=== PATIENT | male | born 1995 | race Caucasian/White ===

== ENCOUNTER 2017-11-06 10:32 | Emergency (ER) | payer BC ==
[~2017-11-06] VITALS: Ht 185.4 cm; Wt 112.0 kg
[2017-11-06 10:44] VITALS: BP 176/89; PULSE 92; RESP 18; TEMP 98.7; O2SAT 96
[2017-11-06] MEDS ORDERED: ZOLO50TA PO (10:53)
[2017-11-06] MEDS ORDERED: VENTAER INH (10:53)
[2017-11-06] MEDS ORDERED: LIDOCAINE HCL 1% PF 30 ML VIAL ONE (11:05)
[2017-11-06] MEDS ORDERED: IBUP1TAB7 PO (11:05)
[2017-11-06] MEDS ORDERED: CLIN150C14 PO (11:05)
--- NOTE | 2017-11-06 11:05 | PD ---
HPI Chief Complaint: Laceration/Skin Injury Time Seen by Provider: 10:56 Travel History International Travel<30 days: No Contact w/Intl Traveler<30days: No Traveled to known affect area: No History of Present Illness HPI 21-year-old male presents to the emergency department with complaint of laceration to the back of his left hand just below his thumb from a knife. He opened a brand-new knife and it slipped out of his hand and cut his hand. Unknown tetanus status. Denies paresthesias, loss of sensation, decreased range of motion, decreased strength to the affected hand. Denies fever, vomiting. Has not taken any medications to alleviate his symptoms. Has applied pressure to control bleeding. Symptoms are mild in severity. Denies pain. No known aggravating or relieving factors. Allergies to penicillins and sulfa. Has primary care provider at home; patient is here on vacation. History of asthma. Has no other medical complaints. No other modifying factors or associated signs and symptoms. PFSH Past Medical History Asthma: Yes Anxiety: Yes ?: Not Past Surgical History Other Surgery: Yes (ADENOIDS) Social History Alcohol Use: Yes Tobacco Use: No Substance Use: No Allergies-Medications (Allergen,Severity, Reaction): Coded Allergies: Penicillins (Verified Allergy, Unknown, 11/06/17) Sulfa (Sulfonamide Antibiotics) (Verified Allergy, Unknown, 11/06/17) Reported Meds & Prescriptions Reported Meds & Active Scripts Active Clindamycin (Clindamycin HCl) 150 Mg Cap 300 Mg PO Q8HR 7 Days Ibuprofen 800 Mg Tab 800 Mg PO Q8H PRN Reported Ventolin Hfa 18 GM Inh (Albuterol Sulfate) 90 Mcg/Act Aer 1 Puff INH Q4H PRN Zoloft (Sertraline HCl) 50 Mg Tab 50 Mg PO DAILY Review of Systems Except as stated in HPI: all other systems reviewed are Neg Physical Exam Narrative GENERAL: Well-nourished, well-developed male patient, in no acute distress SKIN: Warm and dry. Dorsal aspect of left hand with approximately 1.5 cm laceration just below the thumb; thumb with good opposition with flexion and extension; all fingers with full range of motion including extension and flexion ; sensory intact all fingers; all fingers are pink and warm; 2+ radial pulse; without erythema, edema. Bleeding controlled. HEAD: Atraumatic. Normocephalic. EYES: Pupils equal and round. No scleral icterus. No injection or drainage. ENT: Mucosa pink and moist. Airway patent. NECK: Trachea midline. CARDIOVASCULAR: Regular rate. RESPIRATORY: No accessory muscle use. GASTROINTESTINAL: Flat. MUSCULOSKELETAL: No obvious deformities. No clubbing. No cyanosis. No edema. NEUROLOGICAL: Awake and alert. Oriented 3. No obvious cranial nerve deficits. Motor grossly within normal limits. Normal speech. PSYCHIATRIC: Appropriate mood and affect; insight and judgment normal. Hand 1 - Laceration (1.5cm) Data Data Last Documented VS Vital Signs Date Time Temp Pulse Resp B/P (MAP) Pulse Ox O2 Delivery O2 Flow Rate FiO2 11/06/17 10:44 98.7 92 18 176/89 (118) 96 Orders Orders Lidocaine 1% Inj (50 Ml) (Xylocaine 1% I (11/06/17 11:15) Tetanus/Diphtheria Tox Adult (Tetanus/Di (11/06/17 11:15) Lidocaine Pf 1% Inj (Xylocaine-Mpf 1% In (11/06/17 11:05) Ed Discharge Order (11/06/17 11:36) MDM Medical Decision Making Medical Screen Exam Complete: Yes Emergency Medical Condition: Yes Medical Record Reviewed: Yes Differential Diagnosis Laceration, contusion, abrasion, cut Narrative Course 21-year-old male with a laceration to the dorsal aspect of his left hand just below the thumb. Tetanus updated in the ER. See my procedure note for laceration repair. I offered the patient pain medication in the ER and he declined. Clindamycin and ibuprofen prescribed for home. Instructed patient to return to the emergency department or follow-up with primary care provider in 7-10 days for suture removal. Instructed patient to follow up with primary care provider. Patient verbalizes understanding and agreement with treatment plan. Patient is medically cleared and stable for discharge. Discussed reasons to return to the emergency department. Patient agrees with treatment plan. The patients vital signs are stable and the patient is stable for outpatient follow-up and treatment. Patient discharged home, stable and in no acute distress. Procedures Procedure Narrative LACERATION LOCATION: Dorsal aspect of left hand just below the thumb LENGTH: 1.5 cm NUMBER OF STITCHES/PAULA: 4 simple interrupted sutures REPAIR: The area of the laceration was prepped with Betadine and sterilely draped. The laceration was infiltrated with Percent lidocaine. The wound was copiously irrigated and explored without evidence of foreign body, tendon injury or neurovascular injury. The wound was closed using 4-0 Prolene. This was a single layer repair. A sterile dressing was applied. The patient was advised to keep the dressing clean and dry. Patient tolerated the procedure well. Diagnosis Primary Impression: Laceration of left hand Qualified Codes: S61.412A - Laceration without foreign body of left hand, initial encounter Referrals: Primary Care Physician Patient Instructions: Care For Your Stitches (ED), General Instructions, Laceration (ED) Additional Instructions: Antibiotics as prescribed to avoid infection Keep area clean and dry Limit left thumb activity to decrease risk of sutures coming undone Ibuprofen or Tylenol as directed and as needed for pain and inflammation Ice pack to area as needed to decrease pain Return to the emergency department in 7-10 days for suture removal Follow up with primary care provider within 2-4 days Return to the emergency department immediately with worsening of symptoms, particularly if reddened streaks up or down the affected extremity from the suture site, fever, numbness/tingling in the affected extremity, loss of sensation in the affected extremity, severe swelling of the affected Med/Other Pt SpecificInfo: Prescription(s) given Scripts Clindamycin (Clindamycin) 150 Mg Cap 300 MG PO Q8HR for Infection for 7 Days, CAP 0 Refills Prov: Nikki Charles 11/06/17 Ibuprofen (Ibuprofen) 800 Mg Tab 800 MG PO Q8H Y for PAIN SCALE 1 TO 10, #30 TAB 0 Refills Prov: Nikki Charles 11/06/17 Disposition: 01 DISCHARGE HOME Condition: Stable Nikki Charles Nov 06, 2017 11:05
[2017-11-06] MEDS ORDERED: LIDOCAINE HCL 1% 50 ML VIAL INFIL ONE (11:15)
[2017-11-06] MEDS ORDERED: TETANUS/DIPHTHERIA TOXOID ADULT 0.5 ML VIAL IM ONE (11:15)
== END 2017-11-06 11:49 | disposition home or self-care (01) ==
LOC: PHEFT 10:32
DX: S61.412A Laceration without foreign body of left hand, initial encounter (principal); J45.909 Unspecified asthma, uncomplicated; F41.9 Anxiety disorder, unspecified; Z23 Encounter for immunization; W26.0XXA Contact with knife, initial encounter
CPT/HCPCS: 12001; 90471; 90714